=== PATIENT | female | born 1940 | race Caucasian/White ===

== ENCOUNTER 2018-05-11 12:40 | Emergency (ER) | payer MEDICARE, OTHER ==
[~2018-05-11] VITALS: Ht 162.6 cm; Wt 74.7 kg
[2018-05-11 13:25] LABS: BASOPHILS # (AUTO) 0.03 x10^3/uL (0-0.1); BASOPHILS % (AUTO) 0 % (0-1); EOSINOPHILS % (AUTO) 0 % (1-7); LYMPHOCYTES # (AUTO) 0.87 x10^3/uL (1-3.4); LYMPHOCYTES % (AUTO) 7 % (22-44); MD NO; MEAN CORPUSCULAR HEMOGLOBIN 32.2 pg (27.0-34.8); MEAN CORPUSCULAR HGB CONC 33.7 g/dL (32.4-35.8); MEAN CORPUSCULAR VOLUME 95.7 fL (80-100); MEAN PLATELET VOLUME 7.5 fL (7.4-10.4); MONOCYTES # (AUTO) 0.47 x10^3/uL (0.2-0.8); MONOCYTES % (AUTO) 4 % (2-9); NEUTROPHILS # (AUTO) 11.85 x10^3/uL (1.8-6.8); NEUTROPHILS % (AUTO) 90 % (42-75); PLATELET COUNT 250 x10^3/uL (130-400); RED BLOOD COUNT 5.32 x10^6/uL (3.82-5.3); RED CELL DISTRIBUTION WIDTH 14.1 % (9.6-15.2)
[2018-05-11 13:38] LABS: ALANINE AMINOTRANSFERASE 6 U/L (12-78); ALBUMIN 3.2 g/dL (3.4-5.0); ANION GAP 10 mmol/L (5-15); CALCIUM 9.3 mg/dL (8.5-10.1); CHLORIDE 101 mmol/L (98-107); CREATININE 1.16 mg/dL (0.55-1.02)
[2018-05-11 13:40] LABS: ALKALINE PHOSPHATASE 109 U/L (45-117); BILIRUBIN,TOTAL 1.2 mg/dL (0.2-1.0)
--- NOTE | 2018-05-11 15:45 | NUR ---
BLOCK FEEDER: PT TO ROOM FROM ALEXANDRE SHIPLEY.
[2018-05-11] MEDS ORDERED: MORPHINE SULFATE 4 MG/ML, 1ML IVPush PRN (16:00)
[2018-05-11] MEDS ORDERED: OMNIPAQUE 350 MG/ML, 100ML BOTTLE ONE (16:37)
--- NOTE | 2018-05-11 16:43 | NUR ---
PT RESTING ON GURNEY, DENIES NEED FOR PAIN MEDS AT THIS TIME. CALL LIGHT IN REACH. FAMILY AT [facility]. AWAITING CT RESULTS.
--- NOTE | 2018-05-11 16:59 | NUR ---
PT AMBULATORY WITH SLOW, STEADY GAIT TO BATHROOM FOR URINE SAMPLE.
[2018-05-11 17:26] LABS: MICROSCOPIC NOT IND
[2018-05-11 17:30] LABS: CULTURE INDICATED? NO
--- NOTE | 2018-05-11 17:45 | NUR ---
PER , HOLD ABX AT THIS TIME.
[2018-05-11] MEDS ORDERED: CEFTRIAXONE PMX 1GM/50ML 50 ML IV ONE (18:00)
--- NOTE | 2018-05-11 19:03 | NUR ---
PT HANDOFF REPORT TO MARANDA WALLACE.
[2018-05-11] MEDS ORDERED: metroNIDAZOLE 500 MG TABLET PO ONE (19:30)
[2018-05-11] MEDS ORDERED: CIPROFLOXACIN/PMX 400MG/200ML 200 ML IV ONE (19:30)
[2018-05-11] MEDS ORDERED: metroNIDAZOLE 500 MG TABLET ONE (19:36)
[2018-05-11] MEDS ORDERED: CIPROFLOXACIN/PMX 400MG/200ML 200 ML ONE (19:36)
--- NOTE | 2018-05-11 19:46 | NUR ---
RECEVIED REPORT FROM FREDERIC LOW. PT RESTING IN BED AT THIS TIME WITH ORDERED ABX INFUSING. PT ABLE TO ABMULATE TO THE BATHROOM WITH STAND BY ASSIST. PT VSS AT THIS TIME, NO C/O PAIN. BILAT BEDRAILS UP. AT BEDSIDE. WILL CONTINUE TO MONITOR.
--- NOTE | 2018-05-11 20:17 | NUR ---
PT RESTING IN BED, VSS. ORDERED ABX INFUSING PER PUMP. WILL CONTINUE TO MONITOR.
[2018-05-11 20:58] VITALS: BP 115/70
== END 2018-05-11 21:00 | disposition home or self-care (01) ==
LOC: ED 17:00
DX: R10.11 Right upper quadrant pain (principal); R10.31 Right lower quadrant pain; G20 Parkinson's disease
CPT/HCPCS: 36415; 74177; 76700; 80053; 81003; 85025; 96365; 99284; J0744; Q9967